=== PATIENT | male | born 1980 | race Caucasian/White ===

== ENCOUNTER 2024-04-21 14:18 | Emergency (ER) | payer OTHER ==
[~2024-04-21] VITALS: Ht 193 cm; Wt 93.0 kg
[2024-04-21] MEDS ORDERED: DiphenhydrAMINE HCl 50 MG/ML 1ML Vial IV ONE (14:30)
[2024-04-21] MEDS ORDERED: Famotidine 10 MG/ML 2ML Vial IV ONE (14:30)
[2024-04-21] MEDS ORDERED: EPIPEN0.3 MG/0.3 IM (16:19)
== END 2024-04-21 16:23 | disposition home or self-care (01) ==
LOC: ER 14:18
DX: T63.441A Toxic effect of venom of bees, accidental (unintentional), initial encounter (principal); T78.2XXA Anaphylactic shock, unspecified, initial encounter; Z91.030 Bee allergy status
CPT/HCPCS: 96374; 96375; 99282-25; J1200